=== PATIENT | male | born 1975 | race Caucasian/White ===

== ENCOUNTER 2024-01-18 09:30 | Outpatient (RCR) | payer BC, SELFPAY ==
--- NOTE | 2023-12-15 14:26 | MHC.OT.EP ---
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 He has modified the handles of his tools which has helped to decrease the pain. He reports he was not able to make a composite fist until recently. He also reports recently having pain along his lateral epicondyle which he reports ping pong/ table tennis exacerbated his sx's so he discontinued playing. Pt has been referred to skilled OT therapy for a decrease of pain, and an increase of pain free ROM, strength, and the functional use of his R (dominants) hand Frequency and Duration: The patient will be seen 2xs a week for 4 weeks Short Term Goals: Pt will report a 2/10 pain w/ activity Pt will adhere to joint protection activities ] Pt will be complaint w/ his HEP Composition Tile Layer Goals: Pt will report 0/10 pain w/ activity Pt's DASH will be less than 10% Pt will be complaint w/ orthoses wear at night Treatment Plan: Therapeutic Exercise Therapeutic Activity Home Exercise Program Splinting Neuro Re-ed Patient Education Desensitization/Sensory Re-ed Edema Control ADL Training Ultrasound NMES Iontophoresis Paraffin Fluidotherapy MHP Cold Packs Joint Mobilization Soft Tissue Mobilization Kinesiotaping Other (see comments) Electronically Signed By: Sita OTR/L Please Sign and return to therapist. Thank you once again for your referral.
== END 2024-01-18 10:01 | disposition home or self-care (01) ==
LOC: HO.OT 09:30
PROVIDERS: PCP Nurse Practitioner Family; Visit Provider Physician Assistant
DX: M79.641 Pain in right hand (principal)
CPT/HCPCS: 29125; 97033; 97035; 97110; 97140; 97166; 97535